=== PATIENT | male | born 1990 | race Caucasian/White ===

== ENCOUNTER 2021-09-03 01:01 | Emergency (ER) | payer OTHER ==
[~2021-09-03] VITALS: Ht 172.7 cm; Wt 104.6 kg
[2021-09-03] MEDS ORDERED: PRED-220 PO (01:52)
--- NOTE | 2021-09-03 01:52 | PHYS DOC ---
Past History Past Surgical History: Other Additional Past Surgical Histo: adenoids removed General Adult EDM: Chief Complaint: ALLERGIC REACTION HPI: HPI: 31-year-old male presents with rash. Patient started to notice spots on his hands, elbows and around his waistline earlier in the day. The rash progressed all around his waist and groin area as well as his upper extremities ankles and feet. Patient does not have any idea what he came in contact with. He has not been outside around any plants. No other new exposures. He did get a new uniform infused with permethrin but he has been exposed to this type of uniform many times before. It is intensely pruritic so he took 75 mg of Benadryl. The pruritus is improved but he has some joint swelling and discomfort in his hands and knees. Patient's never had a thing like this before. No known allergies. Denies fever or chills. No difficulty breathing or swallowing. Review of Systems: Review of Systems: Constitutional: Denies fever or chills Eyes: Denies change in visual acuity HENT: Denies nasal congestion or sore throat Respiratory: Denies cough or shortness of breath Cardiovascular: Denies chest pain or edema GI: Denies abdominal pain, nausea, vomiting, bloody stools or diarrhea : Denies dysuria Musculoskeletal: Denies back pain or joint pain Integument: Rash Neurologic: Denies headache, focal weakness or sensory changes Endocrine: Denies polyuria or polydipsia Lymphatic: Denies swollen glands Psychiatric: Denies depression or anxiety Current Medications: Current Meds: Current Medications Medications (Trade) Dose Ordered Sig/Priscila Start Time Stop Time Status Last Admin Dose Admin Dexamethasone Sodium Phosphate (Decadron) 10 mg 1X ONCE 09/03/21 01:45 09/03/21 01:46 UNV Allergies: Allergies: Allergies Coded Allergies Type Severity Reaction Last Updated Verified No Known Drug Allergies 09/03/21 No Physical Exam: PE: Constitutional: Well developed, well nourished, no acute distress, non-toxic appearance. [] HENT: Normocephalic, atraumatic, bilateral external ears normal, oropharynx moist, no oral exudates, nose normal. [] Eyes: PERRLA, EOMI, conjunctiva normal, no discharge. [] Neck: Normal range of motion, no tenderness, supple, no stridor. [] Cardiovascular: Heart rate regular rhythm, no murmur [] Lungs & Thorax: Bilateral breath sounds clear to auscultation [] Abdomen: Bowel sounds normal, soft, no tenderness, no masses, no pulsatile masses. [] Skin: Erythematous, raised patches consistent with urticaria/allergic reaction. These are all over the groin area, bilateral ankles, bilateral upper extremities. [] Back: No tenderness, no CVA tenderness. [] Extremities: No tenderness, no cyanosis, no clubbing, ROM intact, no edema. [] Neurologic: Alert and oriented X 3, normal motor function, normal sensory function, no focal deficits noted. [] Psychologic: Affect normal, judgement normal, mood normal. [] Current Patient Data: Vital Signs: Vital Signs Date Time Temp Pulse Resp B/P (MAP) Pulse Ox O2 Delivery O2 Flow Rate FiO2 09/03/21 01:08 97.1 101 16 124/84 (97) 100 Room Air EKG: EKG: [] Radiology/Procedures: Radiology/Procedures: [] Heart Score: C/O Chest Pain: N/A Risk Factors: Risk Factors: DM, Current or recent (<one month) smoker, HTN, HLP, family his tory of CAD, obesity. Risk Scores: Score 0 - 3: 2.5% MACE over next 6 weeks - Discharge Home Score 4 - 6: 20.3% MACE over next 6 weeks - Admit for Clinical Observation Score 7 - 10: 72.7% MACE over next 6 weeks - Early Invasive Strategies Course & Med Decision Making: Course & Med Decision Making Pertinent Labs and Imaging studies reviewed. (See chart for details) The patient appears to be having allergic reactive something. I will treat him with 10 mg of Decadron IM and a prednisone taper. He is stable for discharge at this time. [] Dragon Disclaimer: Dragon Disclaimer: This electronic medical record was generated, in whole or in part, using a voice recognition dictation system. Departure Departure: Impression: Primary Impression: Allergic reaction to chemical substance Qualified Codes: T65.91XA - Toxic effect of unspecified substance, accidental (unintentional), initial encounter Disposition: HOME / SELF CARE / HOMELESS Condition: STABLE Referrals: PCP,UNKNOWN (PCP) Patient Instructions: Allergy Tests Scripts Prednisone (PREDNISONE) 10 Mg Tablet 10 MG PO UD for PREDNISONE TAPER, #39 TAB 0 Refills Take 5 tablets by mouth daily for 2 days, then take 4 tablets by mouth daily for 2 days, then take 2 tablet by mouth daily for 2 days, then take 1 tablet by mouth daily for 2 days, then stop. Prov: LINDA YANES DO 09/03/21 LINDA YANES DO Sep 03, 2021 01:52
[2021-09-03] MEDS ORDERED: DEXAMETHASONE SOD PHOS 10 MG/ML VIAL. IM ONE (02:00)
[2021-09-03 02:10] VITALS: BP 120/86
== END 2021-09-03 02:15 | disposition home or self-care (01) ==
LOC: ER 01:01
DX: T50.995A Adverse effect of other drugs, medicaments and biological substances, initial encounter (principal); Y92.89 Other specified places as the place of occurrence of the external cause
CPT/HCPCS: 96372; 99283; J1100

== ENCOUNTER 2021-09-03 21:52 | Emergency (ER) | payer OTHER ==
[~2021-09-03] VITALS: Ht 172.7 cm; Wt 104.5 kg
[~2021-09-03 21:52] MED LIST: PRED-220 PO
[2021-09-03 21:59] VITALS: BP 114/61
--- NOTE | 2021-09-03 21:59 | PHYS DOC ---
Past History Past Surgical History: Other Additional Past Surgical Histo: adenoids removed Alcohol Use: None General Adult HPI: HPI: ".. Still got this rash...".." I was here earlier.. and I took a dose of the prednisone.. but it still present.. " Patient is a 31 year old male who presents with above hx and complaints localized area of dermatitis. Pt. seen earlier on 09/03 got same complatints. Pt. discharged on prednisone taper and to take OTC benadryl for itching. ( See Dr. Mesa earlier notes. ). Rash is not painful. It is somewhat itchy. It is erythemic. Tenderness. To follow the clothing pattern of his underwear and socks. Reviewed with history of patient about residue soap and socks or underwear or change in laundry detergent. Overall appearance appears to be a contact dermatitis. Recommend patient continue prednisone taper will add Ventolin inhaler and Pepcid twice a day as additional coverage for allergic reaction. Patient continue Benadryl 50 mg at 4 times a day as needed for itching Review of Systems: Review of Systems: Constitutional: Denies fever or chills Eyes: Denies change in visual acuity HENT: Denies nasal congestion or sore throat Respiratory: Denies cough or shortness of breath Cardiovascular: Denies chest pain or edema GI: Denies abdominal pain, nausea, vomiting, bloody stools or diarrhea : Denies dysuria Musculoskeletal: Denies back pain or joint pain Integument: Complains of rash Neurologic: Denies headache, focal weakness or sensory changes Endocrine: Denies polyuria or polydipsia Lymphatic: Denies swollen glands Psychiatric: Denies depression or anxiety Family History: Family History: Noncontributory to presentation Current Medications: Current Meds: See nursing for home meds Allergies: Allergies: Allergies Coded Allergies Type Severity Reaction Last Updated Verified No Known Drug Allergies 09/03/21 No Physical Exam: PE: Constitutional: Well developed, well nourished, moderate acute distress, non- toxic appearance. [] HENT: Normocephalic, atraumatic, bilateral external ears normal, oropharynx moist, no oral exudates, nose normal. [] Eyes: PERRLA, EOMI, conjunctiva normal, no discharge. [] Neck: Normal range of motion, no tenderness, supple, no stridor. [] Cardiovascular:Heart rate regular rhythm, no murmur [] Lungs & Thorax: Bilateral breath sounds equal apex with few scattered wheezes on auscultation [] Abdomen: Bowel sounds normal, soft, no tenderness, no masses, no pulsatile masses. [] Skin: Warm, dry, localized area of erythema area under the underware, and sock distribution. It appears, erythemic rash is contact dermatitis. . Rash covers area of underwear and socks does have some hives. Back: No tenderness, no CVA tenderness. [] Extremities: No tenderness, no cyanosis, no clubbing, ROM intact, no edema. [] Neurologic: Alert and oriented X 3, normal motor function, normal sensory function, no focal deficits noted. [] Psychologic: Affect anxious, judgement normal, mood normal. [] EKG: EKG: [] Radiology/Procedures: Radiology/Procedures: [] Heart Score: C/O Chest Pain: N/A Risk Factors: Risk Factors: DM, Current or recent (<one month) smoker, HTN, HLP, family history of CAD, obesity. Risk Scores: Score 0 - 3: 2.5% MACE over next 6 weeks - Discharge Home Score 4 - 6: 20.3% MACE over next 6 weeks - Admit for Clinical Observation Score 7 - 10: 72.7% MACE over next 6 weeks - Early Invasive Strategies Course & Med Decision Making: Course & Med Decision Making Pertinent Labs and Imaging studies reviewed. (See chart for details) Give additional dose of Depo-Medrol 40 IM. Pepcid 20 mg. Twice a day and Ventolin 2 puffs which she will continue times a day. Patient follow-up primary care. Patient return if any concerns. Impression: 1. Allergic dermatitis-contact dermatitis [] Dragon Disclaimer: Dragon Disclaimer: This electronic medical record was generated, in whole or in part, using a voice recognition dictation system. Departure Departure: Referrals: PCP,UNKNOWN (PCP) Dragon Disclaimer This chart was dictated in whole or in part using Voice Recognition software in a busy, high-work load, and often noisy Emergency Department environment. It may contain unintended and wholly unrecognized errors or omissions. Dragon Disclaimer This chart was dictated in whole or in part using Voice Recognition software in a busy, high-work load, and often noisy Emergency Department environment. It may contain unintended and wholly unrecognized errors or omissions. CHANG DAVIS MD Sep 03, 2021 21:59
[2021-09-03] MEDS ORDERED: KETOROLAC 60 MG/2 ML VIAL. IM ONE (22:30)
[2021-09-03] MEDS ORDERED: methylPREDNISolone ACETATE 40 MG/ML VIAL. IM ONE (22:30)
[2021-09-03] MEDS ORDERED: FAMOTIDINE 20 MG TABLET PO ONE (22:30)
[2021-09-03] MEDS ORDERED: ALBUTEROL SULFATE 8GM INHALER. INH ONE (22:30)
== END 2021-09-03 23:13 | disposition home or self-care (01) ==
LOC: ER 21:52
DX: L23.9 Allergic contact dermatitis, unspecified cause (principal)
CPT/HCPCS: 94640; 96372; 99284; J1030; J1885; 94664

== ENCOUNTER 2021-09-04 21:34 | Emergency (ER) | payer OTHER ==
[~2021-09-04] VITALS: Ht 172.7 cm; Wt 104.5 kg
[2021-09-04 21:54] VITALS: BP 137/73
--- NOTE | 2021-09-04 21:56 | PHYS DOC ---
Past History Past Medical History: Anxiety Past Surgical History: Other Additional Past Surgical Histo: adenoids removed Alcohol Use: None General Adult EDM: Chief Complaint: MUSCLE SPASM/CRAMP HPI: HPI: ". ..My rash is better.. but I having muscle cramps today.. I hurt all over.. achy.. muscle s hurt...".. " My fingers are swollen. ..".. I am so worried.. I got something really bad.. ". " I nauseated.." Patient is a 31 year old male who presents with above hx and complaints of muscle cramps. Patient seen previously in the emergency department for similar complaints. Last seen on 09/03/2021. At that time his major complaint was what appeared to be a contact dermatitis. Patient returns today with prior co mplaints and now complaining of muscle and joint pain. Patient does complain of some mild swelling in hands. Patient states they have been compliant with meds. Does report that the contact dermatitis is improved. Patient reports he is still extremely anxious about his symptoms. Reviewed prior ED record. Has gotten Covid vaccination. Patient is worried that his symptoms has been caused by his previous Covid vaccination. Review of Systems: Review of Systems: Constitutional: Denies fever or chills Eyes: Denies change in visual acuity HENT: Denies nasal congestion or sore throat Respiratory: Denies cough or shortness of breath Cardiovascular: Denies chest pain or edema GI: Complains of nausea, and GERD : Denies dysuria Musculoskeletal: Complains of myalgia and arthralgia Integument: Complains of rash Neurologic: Denies headache, focal weakness or sensory changes Endocrine: Denies polyuria or polydipsia Lymphatic: Denies swollen glands Psychiatric: Denies depression or anxiety Family History: Family History: Noncontributory to presentation Current Medications: Current Meds: See nursing for home meds Allergies: Allergies: Allergies Coded Allergies Type Severity Reaction Last Updated Verified No Known Drug Allergies 09/04/21 No Physical Exam: PE: Constitutional: In acute emotional distress over his dermatitis and generalized malaise,, non-toxic appearance. [] HENT: Normocephalic, atraumatic, bilateral external ears normal, oropharynx moist, no oral exudates, nose normal. [] Eyes: PERRLA, EOMI, conjunctiva normal, no discharge. [] Neck: Normal range of motion, no tenderness, supple, no stridor. [] Cardiovascular:Heart rate regular rhythm, no murmur [] Lungs & Thorax: Bilateral breath sounds equal apex with few scattered wheezes on auscultation [] Abdomen: Bowel sounds normal, soft, no tenderness, no masses, no pulsatile masses. [] Skin: Warm, dry, the contact dermatitis areas appears to be markedly improved Back: No tenderness, no CVA tenderness. [] Extremities: No tenderness, no cyanosis, no clubbing, ROM intact, mild hand edema. No cording in legs. Neurologic: Alert and oriented X 3, normal motor function, normal sensory function, no focal deficits noted. [] Psychologic: Affect extremely anxious, judgement normal, mood normal. [] EKG: EKG: My interpretation EKG shows a sinus rhythm at 84 bpm. No acute morphology time of EKG is 22: 36 minutes [] Radiology/Procedures: Radiology/Procedures: [] Heart Score: C/O Chest Pain: N/A HEART Score for Chest Pain: HEART Score for Chest Pain Response (Comments) Value History Slighlty/Non-Suspicious 0 ECG Normal 0 Age < 45 0 Risk Factors 1 or 2 Risk Factors 1 Troponin < Normal Limit 0 Total 1 Risk Factors: Risk Factors: DM, Current or recent (<one month) smoker, HTN, HLP, family history of CAD, obesity. Risk Scores: Score 0 - 3: 2.5% MACE over next 6 weeks - Discharge Home Score 4 - 6: 20.3% MACE over next 6 weeks - Admit for Clinical Observation Score 7 - 10: 72.7% MACE over next 6 weeks - Early Invasive Strategies Course & Med Decision Making: Course & Med Decision Making Pertinent Labs and Imaging studies reviewed. (See chart for details) Pt. to continue current allergy meds. Follow up with primary. Zofran8 mg up 4 x day for nausea. Clear fluid diet x 48 hrs. Return if any concerns. . Reviewed labs with patient. Continue meds as previous directed. Follow up pending labs and review ED evaluation with primary . Impression: 1. Contact Dermatitis 2. Viral Syndrome 3. Leukocytosis 17.1 4. Nausea 5. History of GERD 6. Hx. Anxiety [] Marianela Disclaimer: Marianela Disclaimer: This electronic medical record was generated, in whole or in part, using a voice recognition dictation system. Departure Departure: Referrals: PCP,UNKNOWN (PCP) Scripts Ondansetron (ONDANSETRON ODT) 8 Mg Tab.rapdis 8 MG PO QIDPRN PRN for NAUSEA/VOMITING, #30 TAB Prov: CHANG DAVIS MD 09/05/21 Attending Signature Attending Signature I have participated in the care of this patient and I have reviewed and agree with all pertinent clinical information above including history, exam, and recommendations. Dragon Disclaimer This chart was dictated in whole or in part using Voice Recognition software in a busy, high-work load, and often noisy Emergency Department environment. It may contain unintended and wholly unrecognized errors or omissions. Dragon Disclaimer This chart was dictated in whole or in part using Voice Recognition software in a busy, high-work load, and often noisy Emergency Department environment. It may contain unintended and wholly unrecognized errors or omissions. CHANG DAVIS MD Sep 04, 2021 21:56
[2021-09-04] MEDS ORDERED: KETOROLAC 30 MG/ML VIAL. IVP ONE (22:15)
[2021-09-04] MEDS ORDERED: IV RINGERS SOLUTION,LACTATED 1,000 ML IV SCH (22:15)
--- NOTE | 2021-09-04 22:52 | EKG ---
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
[2021-09-04 23:26] LABS: BASO # 0.1 x10^3/uL (0.0-0.2); BASO % 0 % (0-3); EOS % 0 % (0-3); HEMATOCRIT 44.1 % (39.0-53.0); HEMOGLOBIN 15.1 g/dL (13.0-17.5); LYMPH # 2.4 x10^3/uL (1.0-4.8); LYMPH % 14 % (24-48); MEAN CORPUSCULAR HEMOGLOBIN 29 pg (25-35); MEAN CORPUSCULAR HGB CONC 34 g/dL (31-37); MEAN CORPUSCULAR VOLUME 86 fL (79-100); MONO % 6 % (0-9); NEUT # 13.6 x10^3uL (1.8-7.7); NEUT % 79 % (31-73); PLATELET COUNT 259 x10^3/uL (140-400); RED BLOOD COUNT 5.14 x10^6/uL (4.30-5.70); WHITE BLOOD COUNT 17.1 x10^3/uL (4.0-11.0)
[2021-09-04 23:38] LABS: CALCIUM 8.4 mg/dL (8.5-10.1); CREATININE 1.2 mg/dL (0.7-1.3); GFR 69.7; POTASSIUM 3.9 mmol/L (3.5-5.1)
[2021-09-04 23:45] LABS: INFLUENZA A PATIENT NEGATIVE (NEGATIVE); INFLUENZA B PATIENT NEGATIVE (NEGATIVE)
[2021-09-04 23:50] LABS: ALBUMIN 3.5 g/dL (3.4-5.0); DIRECT BILIRUBIN 0.1 mg/dL (0.0-0.2); MAGNESIUM 2.1 mg/dL (1.8-2.4); TOTAL BILIRUBIN 0.2 mg/dL (0.2-1.0); TOTAL PROTEIN 6.2 g/dL (6.4-8.2)
[2021-09-05 00:02] LABS: % BANDS 1 % (0-9); % LYMPHS 19 % (24-48); % MONOS 3 % (0-10); % SEGS 77 % (35-66)
[2021-09-05] MEDS ORDERED: IV RINGERS SOLUTION,LACTATED 1,000 ML IV ONE (01:15)
[2021-09-05 01:59] LABS: PLT ESTIMATE ADEQUATE (ADEQUATE)
[2021-09-05 02:21] LABS: BARBITURATES NEG (NEG); BENZODIAZEPINES NEG (NEG); CANNABINOIDS NEG (NEG); COCAINE NEG (NEG); METHADONE NEG (NEG); OPIATES NEG (NEG); PHENCYCLIDINE NEG (NEG)
[2021-09-05 02:22] LABS: AMPHETAMINE/METHAMPHETAMINE NEG (NEG)
[2021-09-05 02:31] LABS: BACTERIA,URINE 0 /HPF (0-FEW); BILIRUBIN,URINE NEG (NEG); CLARITY,URINE CLEAR; COLOR,URINE YELLOW; GLUCOSE,URINE NEG (NEG); NITRITE,URINE NEG (NEG); RBC,URINE 0 /HPF (0-2); SQUAMOUS EPITHELIAL CELL,UR OCC /LPF; UROBILINOGEN,URINE 0.2 mg/dL (0.2 mg/dL); WBC,URINE RARE /HPF (0-4)
[2021-09-05] MEDS ORDERED: ONDA8TAB15 PO (03:10)
[2021-09-05] MEDS ORDERED: PROCHLORPERAZINE 10 MG/2 ML VIAL. IV ONE (03:15)
[2021-09-05] MEDS ORDERED: FAMOTIDINE 20 MG/2 ML VIAL IVP ONE (03:30)
== END 2021-09-05 03:36 | disposition home or self-care (01) ==
LOC: ER 21:34
DX: B34.9 Viral infection, unspecified (principal); D72.829 Elevated white blood cell count, unspecified; K21.9 Gastro-esophageal reflux disease without esophagitis; L25.9 Unspecified contact dermatitis, unspecified cause; F41.9 Anxiety disorder, unspecified; Z20.822 Contact with and (suspected) exposure to COVID-19
CPT/HCPCS: 36415; 80048; 80076; 80307; 81001; 82550; 83735; 83880; 84484; 85007; 85025; 86141; 86200; 87426; 87804; 93005; 96361; 96374; 96375; 99285; C9803; J0780; J1885; J2060; J3490; J7120; U0003